=== PATIENT | male | born 1995 | race Caucasian/White ===

== ENCOUNTER 2018-10-14 02:17 | Emergency (ER) | payer SELFPAY ==
[2018-10-14 02:18] VITALS: BP 148/120
--- NOTE | 2018-10-14 02:20 | ER Report ---
History and Physical Time Seen By MD: 02:20 HPI/ROS CHIEF COMPLAINT: snf clearance HISTORY OF PRESENT ILLNESS: This is a 22 year old male. He is intoxicated and brought the the ER by the [employer]. He is only willing to answer some questions. He has no allergies. Will not talk about health problems or medicines. Denies any pain. Is crying and saying he does not want to be here or "in this". Allergies: Coded Allergies: No Known Drug Allergies (Unverified , 10/14/18) Home Meds Unable to Obtain Active Prescriptions or Reported Meds Reviewed Nurses Notes: Yes Constitutional Vital Sign - Last 24 Hours 10/14/18 02:18 Pulse 132 Resp 20 B/P (MAP) 148/120 Pulse Ox 92 O2 Delivery Room Air Physical Exam General Appearance: The patient is alert, has no immediate need for airway protection. Eyes: Pupils equal and round, mild scleral injection. ENT: Normal oral mucosa. Moist mucous membranes. Neck: Neck is supple and non tender. Respiratory: Chest is non tender, lungs are clear to auscultation. Cardiac: Mild tachycardia and with a regular rhythm Gastrointestinal: Abdomen is soft and nondistended Musculoskeletal: Extremities have full range of motion. No tenderness on the back and upper extremities with palpation. Refuses other palpation. Skin: No rashes or lesions. DIFFERENTIAL DIAGNOSIS: After history and physical exam differential diagnosis was considered for intoxication, no other problems identified. Medical Decision Making ED Course/Re-evaluation ED Course No problems noted other than intoxication, although will not answer all questions or cooperate fully. Decision to Disposition Date: Oct 14, 2018 Decision to Disposition Time: 02:27 Depart Departure Latest Vital Signs Vital Signs Date Time Temp Pulse Resp B/P (MAP) Pulse Ox O2 Delivery O2 Flow Rate FiO2 10/14/18 02:18 132 20 148/120 92 Room Air Impression: Primary Impression: Alcohol intoxication Condition: Condition Unchanged Disposition: [facility] TO ASSISTED/CORRECTIONAL F New Scripts Unable to Obtain Active Prescriptions or Reported Meds Patient Instructions: Alcohol Intoxication (ED) Problem Qualifiers Primary Impression: Alcohol intoxication Complication of substance-induced condition: uncomplicated Qualified Codes: F10.920 - Alcohol use, unspecified with intoxication, uncomplicated GHADA ALMEIDA MD Oct 14, 2018 02:20
== END 2018-10-14 02:32 ==
LOC: ER 02:22
DX: F10.920 Alcohol use, unspecified with intoxication, uncomplicated (principal)
CPT/HCPCS: 99281